=== PATIENT | female | born 1995 | race Caucasian/White ===

== ENCOUNTER 2016-11-16 09:07 | Emergency (ER) | payer BC ==
[2016-11-16 09:19] VITALS: BP 146/81
--- NOTE | 2016-11-16 09:32 | EDM.PDOC ---
ED HPI NEURO - General Chief Complaint: Neurological Problem Stated Complaint: FALLING Time Seen by Provider: 11/16/16 09:31 Source of Information: Reports: Patient History Limitations: Reports: No limitations - History of Present Illness INITIAL COMMENTS - FREE TEXT/NARRATIVE: The patient has never seen a neurologist. She does have an appointment with a neurologist in April. She does have a history of "tics". However she states that she has never had a EEG. The patient states that about two weeks ago she ended up hitting a curb with her head and ended up with a CAT scan as well as a brace. She was seen by Dr. Vanegas at that time. The patient had good results recovering well from that. However last night she fell to the floor on three different occasions at work. She works at a [place] [employer] [facility] those with traumatic brain injury. The patient states that she does remember falling and that she did have a "tic". And her language sounded garbled. The patient could not tell me whether or not the bystanders with traumatic brain injury could understand her when she was talking to them while she fell or on the floor. The patient does have a complicated medical history with bipolar. She has been considering increasing her Risperdal to prevent future tics. She recently had her valproic acid increased but that was without any sequela. The patient has not taken a Depakote since 11:00 this morning. I did run the lab work. The patient was accompanied by her mother. I did talk to the neurologist online communications manager at [place] Dr. Parsons After talking to her she agreed that the patient did not need to have an emergent EEG done or MRI. The patient' s CAT scan was deemed negative. The neurologist did recommend a Depakote level and a ammonia level. The patient admits to having somewhat of a cold. I did find that the patient did have a urinary tract infection even though that she did not have any symptoms. This may be exasperation of her tics secondary to UTI and possibly a viral entity. At any rate I did recommend that she not drive while she is unsure about her mental status and whether or not she is going to have any future falls. She states that she normally has about one or two tics a week and her typical tick will be that she will roll her head and rolled back. The neurologist also said that she would assist in moving up the appointment with the patient. The patient is scheduled to see Dr. Griffin in April. The patient and her mother both felt comfortable with this. I did give the patient the rest of tonight off and she can return to work tomorrow if she has not had any future falls. If she does have another fall tomorrow despite her best efforts of being hydrated and being on antibiotic therapy for her UTI then she should contact Dr. Griffin and move up her appointment. I did review her medical chart. Timing/Duration: Reports: Sudden onset Location (Neuro Complaint): Reports: generalized Quality (Neuro Complaint): Reports: altered sensation Severity: severe Improves with: Reports: None Worsens with: Reports: None Associated Symptoms: Reports: weakness, malaise, loss of appetite. Denies: seizure, shortness of breath - Related Data Allergies/ADRs: Allergies Allergy/AdvReac Type Severity Reaction Status Date / Time No Known Allergies Allergy Verified 10/17/15 22:41 Home Meds: Home Meds Loratadine [Claritin] 10 mg PO DAILY PRN 10/17/15 [History] medroxyPROGESTERone Acetate [Depo-Subq Provera 104] 104 mg SQ ASDIRECTED [History] Amoxicillin/Clavulanate K [Augmentin 875 MG] 1 tab PO BID #20 tablet 10/18/15 [ Rx] Past Medical History Neurological History: Reports: Migraines, Other (see below) (Tic disorder) Psychiatric History: Reports: Depression Hematologic History: Reports: Anemia - Past Surgical History HEENT Surgical History: Reports: Myringotomy w tube(s) GI Surgical History: Reports: Cholecystectomy Social & Family History - Tobacco Use Smoking Status *Q: Current Every Day Smoker Years of Tobacco use: 4 Packs/Tins Daily: 1 - Alcohol Use Days Per Week of Alcohol Use: 0 - Recreational Drug Use Recreational Drug Use: No ED ROS GENERAL - Review of Systems Review Of Systems: See Below Constitutional: Reports: weakness, fatigue HEENT: Denies: Vision change Respiratory: Reports: no symptoms, shortness of breath Cardiovascular: Reports: No symptoms, Chest pain Endocrine: Reports: fatigue GI/Abdominal: Reports: No symptoms : Reports: no symptoms Musculoskeletal: Denies: neck pain, arm pain, back pain, joint pain, joint swelling, muscle pain, muscle stiffness Skin: Reports: no symptoms Neurological: Reports: syncope (or possibly nearly. ), gait disturbance Psychiatric: Reports: Depression Hematologic/Lymphatic: Reports: no symptoms Immunologic: Reports: no symptoms ED EXAM, NEURO - Physical Exam Exam: See Below Exam Limited By: Other (Obesity noted) General Appearance: alert, anxious, moderate distress, obese Eye Exam: bilateral eye: EOMI Ears: normal external exam, normal canal, hearing grossly normal, normal TMs Nose: normal inspection Throat/Mouth: Normal inspection, Normal lips, Normal teeth, Normal gums, Normal oropharynx, Normal voice, No airway compromise Head Exam: atraumatic, normocephalic. No: facial swelling, facial tenderness, sinus tenderness Neck: normal inspection, supple, non-tender, full range of motion. No: lymphadenopathy (L), lymphadenopathy (R), tender lateral, tender midline Respiratory/Chest: no respiratory distress, lungs clear Cardiovascular: regular rate, rhythm, no murmur GI/Abdominal: normal bowel sounds, soft, non tender Neurological: alert, normal dorsiflexion, normal plantar flexion, normal gait, normal reflexes, no motor/sensory deficits, other (Rhomberg is negative. ). No : difficulty walking DTR: 2+: bicep (R), bicep (L), patella (R), patella (L) Back Exam: normal inspection, full range of motion Extremities: normal inspection, normal range of motion Psychiatric: anxious Skin Exam: Warm, Dry Course - Vital Signs Last Recorded V/S: Last Vital Signs Temp 36.8 C 11/16/16 09:18 Pulse 99 11/16/16 09:18 Resp 20 11/16/16 09:18 BP 146/81 H 11/16/16 09:18 Pulse Ox 99 11/16/16 09:18 - Orders/Labs/Meds Labs: Laboratory Tests 11/16/16 11/16/16 11/16/16 Range/Units 09:54 09:54 10:32 WBC 12.0 H (4.0-10.0) x10^3/uL RBC 5.16 (4.00-5.50) x10^6/uL Hgb 11.4 L (12.0-16.0) g/dL Hct 36.8 (33.0-47.0) % MCV 71.3 L (78.0-93.0) fL MCH 22.1 L (26.0-32.0) pg MCHC 31.0 L (32.0-36.0) g/dL RDW Coeff of Paulo 16.8 H (10.0-15.0) % Plt Count 400 (130-400) x10^3/uL Neut % (Auto) 67.3 (50.0-80.0) % Lymph % (Auto) 24.5 L (25.0-50.0) % P[place]leton % (Auto) 6.2 (2.0-11.0) % Eos % (Auto) 1.8 (0.0-4.0) % Baso % (Auto) 0.2 (0.2-1.2) % Sodium 139 (136-145) mmol/L Potassium 4.1 (3.5-5.1) mmol/L Chloride 101 (98-107) mmol/L Carbon Dioxide 28 (21-32) mmol/L BUN 11 (7-18) mg/dL Creatinine 0.8 (0.55-1.02) mg/dL Est Cr Clr Drug Dosing TNP Estimated GFR (MDRD) > 60 Glucose 91 (74-106) mg/dL Calcium 8.5 (8.5-10.1) mg/dL Corrected Calcium 8.98 (8.5-10.1) mg/dL Magnesium 2.0 (1.8-2.4) mg/dL Total Bilirubin 0.2 (0.2-1.0) mg/dL AST 9 L (15-37) U/L ALT 21 (14-59) U/L Alkaline Phosphatase 89 (46-116) U/L C-Reactive Protein 2.6 H (<=0.9) mg/dL Total Protein 7.3 (6.4-8.2) g/dL Albumin 3.4 (3.4-5.0) g/dL Globulin 3.9 Albumin/Globulin Ratio 0.87 Urine Color Delmy H (YELLOW) Urine Appearance Turbid H (CLEAR) Urine pH 5.5 (5.0-8.0) Ur Specific Warren >=1.030 Urine Protein Negative (NEGATIVE) mg/dL Urine Glucose (UA) Negative (NEGATIVE) mg/dL Urine Ketones Negative (NEGATIVE) mg/dL Urine Occult Blood Negative (NEGATIVE) Urine Nitrite Negative (NEGATIVE) Urine Bilirubin Negative (NEGATIVE) Urine Urobilinogen 0.2 (0.2) EU/dL Ur Leukocyte Esterase Small H (NEGATIVE) Urine RBC 0-5 (NOT SEEN) /HPF Urine WBC 30-40 H (NOT SEEN) /HPF Ur Squamous Epith Cells Many H (NEGATIVE) /HPF Urine Bacteria Moderate H (NEGATIVE) /HPF Urine Mucus Moderate H (NEGATIVE) /LPF Meds: Medications Discontinued Medications Generic Name Dose Route Start Last Admin Trade Name Freq PRN Reason Stop Dose Admin Trimethoprim/Sulfamethoxazole 1 tab 11/16/16 11:39 11/16/16 12:04 Septra Ds PO 11/16/16 11:40 1 tab ONETIME ONE Administration Departure - Departure Time of Disposition: 11:32 Disposition: Home, Self-Care 01 Condition: good Clinical Impression: Urinary tract infection Qualifiers: Urinary tract infection type: acute cystitis Hematuria presence: without hematuria Qualified Code(s): N30.00 - Acute cystitis without hematuria Change in mental status Qualifiers: Altered mental status type: unspecified Qualified Code(s): R41.82 - Altered mental status, unspecified Referrals: Darrin Franklin MD [Primary Care Provider] - Forms: ED Department Discharge Additional Instructions: Call Dr. Griffin office and ask to have your appointment moved up. Notify them you had been to the ER and you did have an increase or change in your TICS. I talked to Dr. Parsons and she did not feel this was emergent. I do want to treat you for a urinary infection. Your CT scan was normal. I will also be checking a Depakote level and also a ammonia level. These are pending. We will notify you if these are abnormal. I would recommend taking tonight off of work and drink plenty of fluids keeping herself hydrated get plenty of rest and if you feel well he can go and return to work tomorrow night. make sure you keep good documentation of any tics. This will be useful when you see Dr. Griffin.
[2016-11-16 09:57] LABS: BASOPHILS PERCENT AUTO 0.2 % (0.2-1.2); EOSINOPHILS PERCENT AUTO 1.8 % (0.0-4.0); HEMATOCRIT 36.8 % (33.0-47.0); HEMOGLOBIN 11.4 g/dL (12.0-16.0); LYMPHOCYTES PERCENT AUTO 24.5 % (25.0-50.0); MEAN CORPUSCULAR HEMOGLOBIN 22.1 pg (26.0-32.0); MEAN CORPUSCULAR VOLUME 71.3 fL (78.0-93.0); MONOCYTES PERCENT AUTO 6.2 % (2.0-11.0); NEUTROPHILS PERCENT AUTO 67.3 % (50.0-80.0); RED BLOOD CELL COUNT 5.16 x10^6/uL (4.00-5.50)
[2016-11-16 10:09] LABS: RDW CV 16.8 % (10.0-15.0)
[2016-11-16 10:26] LABS: A/G RATIO 0.87; ALBUMIN 3.4 g/dL (3.4-5.0); ALKALINE PHOSPHATASE 89 U/L (46-116); BILIRUBIN TOTAL 0.2 mg/dL (0.2-1.0); C-REACTIVE PROTEIN 2.6 mg/dL (<=0.9); CALCIUM 8.5 mg/dL (8.5-10.1); CHLORIDE,CL 101 mmol/L (98-107); CORRECTED CALCIUM 8.98 mg/dL (8.5-10.1); CREATININE 0.8 mg/dL (0.55-1.02); ESTIMATED GFR > 60; GLUCOSE RANDOM 91 mg/dL (74-106)
[2016-11-16 10:44] LABS: APPEARANCE,URINE TURBID (CLEAR); BILIRUBIN,URINE NEGATIVE (NEGATIVE); GLUCOSE,URINE NEGATIVE (NEGATIVE); KETONES,URINE NEGATIVE (NEGATIVE); LEUKOCYTE ESTERASE,URINE SMALL (NEGATIVE); NITRITE,URINE NEGATIVE (NEGATIVE); OCCULT BLOOD,URINE NEGATIVE (NEGATIVE); PH,URINE 5.5 (5.0-8.0); PROTEIN,URINE NEGATIVE (NEGATIVE); UROBILINOGEN,URINE 0.2 EU/dL (0.2)
[2016-11-16 11:14] LABS: BACTERIA,URINE MODERATE /HPF (NEGATIVE); MUCUS,URINE MODERATE /LPF (NEGATIVE); RBC,URINE 0-5 /HPF (NOT SEEN); WBC,URINE 30-40 /HPF (NOT SEEN)
[2016-11-16] MEDS ORDERED: Sulfamethoxazole/Trimethoprim 800-160 MG Tab PO ONE (11:39)
[2016-11-18 07:32] LABS: CLARITY Clear
== END 2016-11-16 12:11 | disposition home or self-care (01) ==
LOC: VM.ED 09:07
DX: N30.00 Acute cystitis without hematuria (principal); R41.82 Altered mental status, unspecified; F32.9 Major depressive disorder, single episode, unspecified; F17.210 Nicotine dependence, cigarettes, uncomplicated; Z86.2 Personal history of diseases of the blood and blood-forming organs and certain disorders involving the immune mechanism; Z90.49 Acquired absence of other specified parts of digestive tract; Z79.899 Other long term (current) drug therapy
CPT/HCPCS: 36415; 70450; 80053; 80164; 81001; 82140; 83735; 85025; 86140; 87086; 87088; 93005; 99284; A9270; 87186

== ENCOUNTER 2017-04-02 04:00 | Emergency (ER) | payer BC ==
[2017-04-02 04:15] VITALS: BP 119/50
[2017-04-02] MEDS ORDERED: Sodium Chloride 0.9% 1,000 ML IV ONE (04:37)
[2017-04-02] MEDS ORDERED: Ondansetron 4 MG/2 ML SDV IVPUSH ONE (04:37)
[2017-04-02] MEDS ORDERED: Sodium Chloride 0.9% 10 ML Syringe FLUSH PRN (04:37)
--- NOTE | 2017-04-02 04:43 | EDM.PDOC ---
ED HPI GENERAL MEDICAL PROBLEM - General Chief Complaint: General Stated Complaint: Rash, Impetigo, Dizziness, Headache Time Seen by Provider: 04/02/17 04:24 Source of Information: Reports: Patient History Limitations: Reports: No Limitations - History of Present Illness INITIAL COMMENTS - FREE TEXT/NARRATIVE: Patient seen in the clinic on Thursday, diagnosed with Impetigo and given bactrim for systemic infection. She presents this morning with a full body rash , headache, nausea, joint weakness. She did take tylenol pm before bed last night. She has taken bactrim in the past with no reaction. Her boyfriend has been diagnosed with mono 3 weeks ago and strep throat before that. She also states she has had diarrhea. Denies chest pain, SOB, decrease in LOC. No blood in urine, stool, no emesis. Surgical history includes cholecystectomy. 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 Pain Score (Numeric/FACES): 9 joints Pain Score (Numeric/FACES): 5 - Related Data Allergies Allergy/AdvReac Type Severity Reaction Status Date / Time No Known Allergies Allergy Verified 04/02/17 04:15 Home Meds: Home Meds Loratadine [Claritin] 10 mg PO DAILY PRN 10/17/15 [History] medroxyPROGESTERone Acetate [Depo-Subq Provera 104] 104 mg SQ ASDIRECTED [History] Sulfamethoxazole/Trimethoprim [Bactrim Ds Tablet] 1 tab PO BID 04/02/17 [History ] Past Medical History Neurological History: Reports: Migraines, Other (See Below) Other Neuro History: fall Nov 06 Psychiatric History: Reports: Depression Hematologic History: Reports: Anemia - Past Surgical History HEENT Surgical History: Reports: Myringotomy w Tube(s) GI Surgical History: Reports: Cholecystectomy Social & Family History - Tobacco Use Smoking Status *Q: Current Every Day Smoker Years of Tobacco use: 4 Packs/Tins Daily: 1 - Alcohol Use Days Per Week of Alcohol Use: 0 - Recreational Drug Use Recreational Drug Use: No ED ROS GENERAL - Review of Systems Review Of Systems: See Below Constitutional: Reports: Weakness HEENT: Reports: No Symptoms Respiratory: Reports: No Symptoms Cardiovascular: Reports: No Symptoms Endocrine: Reports: No Symptoms GI/Abdominal: Reports: Abdominal Pain, Diarrhea, Nausea Musculoskeletal: Reports: Joint Pain Skin: Reports: Rash Neurological: Reports: Headache Psychiatric: Reports: No Symptoms Hematologic/Lymphatic: Reports: No Symptoms Immunologic: Reports: No Symptoms ED EXAM, GENERAL - Physical Exam Exam: See Below Exam Limited By: No Limitations General Appearance: Alert, WD/WN, No Apparent Distress Eye Exam: Bilateral Eye: EOMI, PERRL Ears: Normal TMs Throat/Mouth: Normal Inspection, Normal Lips, Normal Teeth, Normal Oropharynx Head: Atraumatic, Normocephalic Neck: Normal Inspection, Supple, Non-Tender, Full Range of Motion Respiratory/Chest: No Respiratory Distress, Lungs Clear, Normal Breath Sounds, No Accessory Muscle Use, Chest Non-Tender Cardiovascular: Normal Peripheral Pulses, Regular Rate, Rhythm, No Edema Peripheral Pulses: 2+: Posterior Tibial (L), Posterior Tibial (R), Dorsalis Pedis (L), Dorsalis Pedis (R) GI/Abdominal: Normal Bowel Sounds, Soft, Non-Tender, No Organomegaly Back Exam: Normal Inspection Extremities: Normal Inspection, Normal Range of Motion, Non-Tender, No Pedal Edema, Normal Capillary Refill Neurological: Alert, Oriented, CN II-XII Intact, Normal Cognition, Normal Gait Psychiatric: Normal Affect, Normal Mood Skin Exam: Rash (macular generalized rash) Lymphatic: No Adenopathy Course - Vital Signs Last Recorded V/S: Last Vital Signs Temp 37.8 C 04/02/17 04:00 Pulse 84 04/02/17 04:00 Resp 16 04/02/17 04:00 BP 119/50 L 04/02/17 04:00 Pulse Ox 97 04/02/17 04:00 - Re-Assessments/Exams Free Text/Narrative Re-Assessment/Exam: 04/02/17 04:47 Patient is being hydrated, screened for mono, given zofran for nausea. Departure - Departure Time of Disposition: 05:41 Disposition: Home, Self-Care 01 Condition: good Clinical Impression: Allergic drug rash, Viral infection, Lucas exposure - Discharge Information Instructions: Rehydration, Adult, Mononucleosis Rapid Test, Infectious Mononucleosis Forms: ED Department Discharge Additional Instructions: Stop taking the bactrim. This may be the cause of your rash. I have started you on Keflex instead. Your rash may also be the result of a viral infection. They can be very similar in appearance. I have also tested you for MONO and we will let you know the results You have many viral illness complaints with the joint pain/weakness, headache, nausea, low grade temperature Your rapid mono screen was negative, however, an monik longoria viral panel is pending and we will let you know of any positive results with that Please read the instructions that I gave you on viral illness, rapid mono testing, and infectious mononucleosis Follow up with your primary doctor as symptoms warrant Please call with any questions or concerns - Problem List & Annotations (1) Allergic drug rash SNOMED Code(s): 25075514, 876934589 Code(s): L27.0 - GEN SKIN ERUPTION DUE TO DRUGS AND MEDS TAKEN INTERNALLY Status: Acute Priority: Low Current Visit: Yes (2) Lucas exposure SNOMED Code(s): 727730295 Code(s): Z20.828 - CONTACT W AND EXPOSURE TO OTH VIRAL COMMUNICABLE DISEASES Status: Acute Priority: Low Current Visit: Yes (3) Viral infection SNOMED Code(s): 78656732, 013380630 Code(s): B34.9 - VIRAL INFECTION, UNSPECIFIED Status: Acute Priority: Low Current Visit: Yes - Problem List Review Problem List Initiated/Reviewed/Updated: Yes - Assessment/Plan Assessment:: exposure to mono viral rash Plan: Stop taking the bactrim. This may be the cause of your rash. I have started you on Keflex instead. Your rash may also be the result of a viral infection. They can be very similar in appearance. I have also tested you for MONO and we will let you know the results You have many viral illness complaints with the joint pain/weakness, headache, nausea, low grade temperature Your rapid mono screen was negative, however, an monik longoria viral panel is pending and we will let you know of any positive results with that Please read the instructions that I gave you on viral illness, rapid mono testing, and infectious mononucleosis Follow up with your primary doctor as symptoms warrant Please call with any questions or concerns
== END 2017-04-02 05:43 | disposition home or self-care (01) ==
LOC: VM.ED 04:00
DX: B34.9 Viral infection, unspecified (principal); R21 Rash and other nonspecific skin eruption; B27.90 Infectious mononucleosis, unspecified without complication; F32.9 Major depressive disorder, single episode, unspecified; G43.909 Migraine, unspecified, not intractable, without status migrainosus; F17.210 Nicotine dependence, cigarettes, uncomplicated; Z90.49 Acquired absence of other specified parts of digestive tract; Z79.899 Other long term (current) drug therapy; Z86.2 Personal history of diseases of the blood and blood-forming organs and certain disorders involving the immune mechanism; Z96.22 Myringotomy tube(s) status
CPT/HCPCS: 36415; 86308; 86663; 86664; 86665; 96361; 96374; 99284; J2405; J7030

== ENCOUNTER 2017-08-28 21:29 | Emergency (ER) | payer BC ==
[2017-08-28] MEDS ORDERED: Sodium Chloride 0.9% 10 ML Syringe FLUSH PRN (21:55)
[2017-08-28] MEDS ORDERED: Sodium Chloride 0.9% 1,000 ML IV SCH (22:00)
--- NOTE | 2017-08-28 22:49 | EDM.PDOC ---
ED HPI GENERAL MEDICAL PROBLEM - General Chief Complaint: Respiratory Problem Stated Complaint: HEART POUNDING AND TIGHTNESS IN CHEST Time Seen by Provider: 08/28/17 21:39 Source of Information: Reports: Patient History Limitations: Reports: No Limitations - History of Present Illness INITIAL COMMENTS - FREE TEXT/NARRATIVE: Patient states that she most recently had been traveling down to the [facility] of the [facility] was in a car for approximately 5 days and was about on the last day of her trip that she started having swollen and bilateral lower extremities. Approximately the last 3 or 4 days she's noticed some increased chest discomfort on exertion and breathing. Today when she woke up she started having more than of the chest discomfort sitting in midsternal area however it is exacerbated by movement and coughing and deep breathing. Does relieve if she is resting. Onset: Today, Gradual Location: Reports: Chest Quality: Reports: Ache, Dull Severity: Mild Improves with: Reports: Immobilization Worsens with: Reports: Movement Associated Symptoms: Reports: Shortness of Breath, Other (swelling ). Denies: Confusion, Chest Pain, Cough, Diaphoresis, Fever/Chills, Headaches, Nausea/ Vomiting, Seizure, Weakness - Related Data Allergies Allergy/AdvReac Type Severity Reaction Status Date / Time No Known Allergies Allergy Verified 04/02/17 04:15 Home Meds: Home Meds Loratadine [Claritin] 10 mg PO DAILY PRN 10/17/15 [History] medroxyPROGESTERone Acetate [Depo-Subq Provera 104] 104 mg SQ ASDIRECTED [History] Sulfamethoxazole/Trimethoprim [Bactrim Ds Tablet] 1 tab PO BID 04/02/17 [History ] Prednisone [IJD: Prednisone] 10 mg PO BID 5 Days #10 tab 08/28/17 [Rx] Past Medical History Neurological History: Reports: Migraines, Other (See Below) Other Neuro History: fall Nov 06 Psychiatric History: Reports: Depression Hematologic History: Reports: Anemia - Past Surgical History HEENT Surgical History: Reports: Myringotomy w Tube(s) GI Surgical History: Reports: Cholecystectomy Social & Family History - Tobacco Use Smoking Status *Q: Current Every Day Smoker Years of Tobacco use: 4 Packs/Tins Daily: 1 - Alcohol Use Days Per Week of Alcohol Use: 0 - Recreational Drug Use Recreational Drug Use: No ED ROS GENERAL - Review of Systems Review Of Systems: See Below Constitutional: Reports: No Symptoms HEENT: Reports: No Symptoms Respiratory: Reports: Shortness of Breath, Pleuritic Chest Pain Cardiovascular: Reports: Edema, Palpitations Endocrine: Reports: No Symptoms GI/Abdominal: Reports: No Symptoms : Reports: No Symptoms Musculoskeletal: Reports: No Symptoms Skin: Reports: No Symptoms Neurological: Reports: No Symptoms Psychiatric: Reports: No Symptoms ED EXAM, GENERAL - Physical Exam Exam: See Below Exam Limited By: No Limitations General Appearance: Alert, WD/WN, No Apparent Distress Respiratory/Chest: No Respiratory Distress, Lungs Clear, Normal Breath Sounds, No Accessory Muscle Use Cardiovascular: Normal Peripheral Pulses, Regular Rate, Rhythm GI/Abdominal: Normal Bowel Sounds, Soft, Non-Tender, No Organomegaly Back Exam: Normal Inspection, Full Range of Motion Extremities: Normal Inspection, Normal Range of Motion Neurological: Alert, Oriented, CN II-XII Intact, Normal Cognition, Normal Gait Skin Exam: Warm, Dry, Intact, Normal Color, No Rash Course - Orders/Labs/Meds Orders: Active Orders 24 hr Category Date Time Status EKG Documentation Completion [RC] URGENT Care 08/28/17 21:52 Ordered Ang Chest [CT] Stat Exams 08/28/17 21:52 Taken Sodium Chloride 0.9% [Normal Saline] 1,000 ml Med 08/28/17 22:00 Active IV ASDIRECTED Sodium Chloride 0.9% [Saline Flush] Med 08/28/17 21:55 Active 10 ml FLUSH ASDIRECTED PRN Peripheral IV Insertion Adult [OM.PC] Routine Oth 08/28/17 21:55 Ordered Medication Orders Sodium Chloride (Normal Saline) 1,000 mls @ 500 mls/hr IV ASDIRECTED MARCELLUS Sodium Chloride (Saline Flush) 10 ml FLUSH ASDIRECTED PRN PRN Reason: Keep Vein Open Labs: Laboratory Tests 08/28/17 08/28/17 08/28/17 Range/Units 22:22 22:22 22:22 WBC 9.1 (4.0-10.0) x10^3/uL RBC 4.70 (4.00-5.50) x10^6/uL Hgb 10.6 L (12.0-16.0) g/dL Hct 34.6 (33.0-47.0) % MCV 73.6 L (78.0-93.0) fL MCH 22.6 L (26.0-32.0) pg MCHC 30.6 L (32.0-36.0) g/dL RDW Coeff of Paulo 16.8 H (10.0-15.0) % Plt Count 360 (130-400) x10^3/uL Add Manual Diff Yes Neutrophils % (Manual) 61 (50-80) % Band Neutrophils % 2 (0-6) % Lymphocytes % (Manual) 31 (25-50) % Monocytes % (Manual) 5 (2-11) % Blast Cells % 1 H (0) % Platelet Estimate Adequate Giant Platelets Occasional H Anisocytosis 1+ slight H Microcytosis 3+ marked H PT 9.3 L (9.8-11.8) SEC INR 0.9 L (2.0-3.5) D-Dimer, Quantitative 0.24 (<=0.58) mg/LFEU Sodium 144 (136-145) mmol/L Potassium 4.2 (3.5-5.1) mmol/L Chloride 109 H (98-107) mmol/L Carbon Dioxide 27 (21-32) mmol/L BUN 9 (7-18) mg/dL Creatinine 0.8 (0.55-1.02) mg/dL Est Cr Clr Drug Dosing TNP Estimated GFR (MDRD) > 60 Glucose 91 (74-106) mg/dL Calcium 8.8 (8.5-10.1) mg/dL Corrected Calcium 9.44 (8.5-10.1) mg/dL Total Bilirubin 0.2 (0.2-1.0) mg/dL AST 20 (15-37) U/L ALT 44 (14-59) U/L Alkaline Phosphatase 92 (46-116) U/L Creatine Kinase 34 (26-192) U/L Total Protein 6.4 (6.4-8.2) g/dL Albumin 3.2 L (3.4-5.0) g/dL Globulin 3.2 Albumin/Globulin Ratio 1.00 Meds: Medications Generic Name Dose Route Start Last Admin Trade Name Freq PRN Reason Stop Dose Admin Sodium Chloride 1,000 mls @ 500 mls/hr 08/28/17 22:00 Normal Saline IV ASDIRECTED MARCELLUS Sodium Chloride 10 ml 08/28/17 21:55 Saline Flush FLUSH ASDIRECTED PRN Keep Vein Open Departure - Departure Time of Disposition: 23:15 Disposition: Home, Self-Care 01 Clinical Impression: Atelectasis, Splenomegaly - Discharge Information Instructions: Shortness of Breath, [id number] Referrals: Darrin Franklin MD [Primary Care Provider] - Forms: ED Department Discharge Additional Instructions: Follow-up with primary PCP early next week regarding the enlarged spleen. - My Orders Last 24 Hours: My Active Orders 08/28/17 21:52 EKG Documentation Completion [RC] URGENT Ang Chest [CT] Stat 08/28/17 21:55 Sodium Chloride 0.9% [Saline Flush] 10 ml FLUSH ASDIRECTED PRN Peripheral IV Insertion Adult [OM.PC] Routine 08/28/17 22:00 Sodium Chloride 0.9% [Normal Saline] 1,000 ml IV ASDIRECTED - Assessment/Plan Last 24 Hours: My Active Orders 08/28/17 21:52 EKG Documentation Completion [RC] URGENT Ang Chest [CT] Stat 08/28/17 21:55 Sodium Chloride 0.9% [Saline Flush] 10 ml FLUSH ASDIRECTED PRN Peripheral IV Insertion Adult [OM.PC] Routine 08/28/17 22:00 Sodium Chloride 0.9% [Normal Saline] 1,000 ml IV ASDIRECTED
[2017-08-28 22:53] LABS: CHLORIDE,CL 109 mmol/L (98-107); SODIUM,NA 144 mmol/L (136-145)
[2017-08-29 04:48] VITALS: BP 144/81
== END 2017-08-28 23:30 | disposition home or self-care (01) ==
LOC: VM.ED 21:29
DX: J98.11 Atelectasis (principal); R16.1 Splenomegaly, not elsewhere classified; F17.210 Nicotine dependence, cigarettes, uncomplicated; Z79.899 Other long term (current) drug therapy
CPT/HCPCS: 71275; 80053; 82550; 85025; 85379; 85610; 99285

== ENCOUNTER 2023-11-12 00:05 | Emergency (ER) | payer SELFPAY ==
[2023-11-12 00:28] VITALS: BP 140/83; PULSE 97
[2023-11-12 00:54] LABS: APPEARANCE,URINE CLEAR (CLEAR); BILIRUBIN,URINE NEGATIVE (NEGATIVE); COLOR,URINE YELLOW (YELLOW); GLUCOSE,URINE NEGATIVE (NEGATIVE); KETONES,URINE NEGATIVE (NEGATIVE); LEUKOCYTE ESTERASE,URINE NEGATIVE (NEGATIVE); NITRITE,URINE NEGATIVE (NEGATIVE); OCCULT BLOOD,URINE NEGATIVE (NEGATIVE); UROBILINOGEN,URINE 0.2 EU/dL (0.2)
[2023-11-12 00:55] LABS: PROTEIN,URINE TRACE mg/dL (NEGATIVE)
[2023-11-12] MEDS: Ondansetron 4 MG Tab.DIS PO ONE (00:55)
[2023-11-12 00:59] LABS: RBC,URINE 0-5 /HPF (NOT SEEN); WBC,URINE NOT SEEN /HPF (NOT SEEN)
[2023-11-12 01:00] LABS: BACTERIA,URINE NOT SEEN /HPF (NOT SEEN); MUCUS,URINE NOT SEEN /LPF (NOT SEEN); SQUAMOUS EPITHELIAL CELLS,UR FEW /HPF (NOT SEEN)
== END 2023-11-12 01:02 | disposition home or self-care (01) ==
LOC: VM.ED 00:05
DX: R10.84 Generalized abdominal pain (principal); Z90.49 Acquired absence of other specified parts of digestive tract; Z79.899 Other long term (current) drug therapy
CPT/HCPCS: 81001; 99284; A9270-GY

== ENCOUNTER 2024-05-28 04:50 | Emergency (ER) | payer SELFPAY ==
[2024-05-28] MEDS: hydrOXYzine HCl 25 MG Tab PO ONE (05:24)
[2024-05-28 15:01] VITALS: BP 136/88; PULSE 88
== END 2024-05-28 05:30 | disposition home or self-care (01) ==
LOC: VM.ED 04:50
DX: F41.1 Generalized anxiety disorder (principal); Z88.0 Allergy status to penicillin; Z88.2 Allergy status to sulfonamides; Z88.8 Allergy status to other drugs, medicaments and biological substances; Z79.890 Hormone replacement therapy; Z79.899 Other long term (current) drug therapy; Z90.49 Acquired absence of other specified parts of digestive tract
CPT/HCPCS: 99283; A9270-GY

== ENCOUNTER 2024-07-31 08:19 | Emergency (ER) | payer SELFPAY ==
[2024-07-31] MEDS: Take Home: Cyclobenzaprine 10 MG Tab, 4 Tab Pack PO ONE (08:51)
[2024-07-31 09:45] VITALS: BP 140/82; PULSE 89
== END 2024-07-31 09:00 | disposition home or self-care (01) ==
LOC: VM.ED 08:19
DX: M54.50 Low back pain, unspecified (principal); Z90.49 Acquired absence of other specified parts of digestive tract; Z79.899 Other long term (current) drug therapy; Z88.1 Allergy status to other antibiotic agents; Z88.8 Allergy status to other drugs, medicaments and biological substances; Z88.2 Allergy status to sulfonamides
CPT/HCPCS: 99283; A9270-GY

== ENCOUNTER 2024-10-24 16:32 | Emergency (ER) | payer SELFPAY ==
[2024-10-24 16:55] VITALS: PULSE 86
[2024-10-24 17:22] LABS: BASOPHILS PERCENT AUTO 0.1 % (0.2-1.2); EOSINOPHILS ABSOLUTE AUTO 0.2 x10^3/uL (0.0-0.5); EOSINOPHILS PERCENT AUTO 1.8 % (0.0-4.0); HEMATOCRIT 35.2 % (33.0-47.0); HEMOGLOBIN 11.3 g/dL (12.0-16.0); IMMATURE GRAN ABSOLUTE AUTO 0.04 x10^3/uL (0.00-0.07); LYMPHOCYTES ABSOLUTE AUTO 2.3 x10^3/uL (1.0-4.8); LYMPHOCYTES PERCENT AUTO 16.9 % (25.0-50.0); MEAN CORPUSCULAR HEMOGLOBIN 23.7 pg (26.0-32.0); MEAN CORPUSCULAR HGB CONC 32.1 g/dL (32.0-36.0); MEAN CORPUSCULAR VOLUME 73.9 fL (78.0-93.0); MONOCYTES ABSOLUTE AUTO 0.6 x10^3/uL (0.0-0.8); MONOCYTES PERCENT AUTO 4.5 % (2.0-11.0); NEUTROPHILS ABSOLUTE AUTO 10.2 x10^3/uL (1.8-7.7); NEUTROPHILS PERCENT AUTO 76.4 % (50.0-80.0); PLATELET COUNT,PLT 424 x10^3/uL (130-400); RED BLOOD CELL COUNT 4.76 x10^6/uL (4.00-5.50); WHITE BLOOD CELL COUNT,WBC 13.4 x10^3/uL (4.0-10.0)
[2024-10-24 17:38] LABS: APPEARANCE,URINE CLEAR (CLEAR); BILIRUBIN,URINE NEGATIVE (NEGATIVE); COLOR,URINE LIGHT YELLOW (YELLOW); GLUCOSE,URINE NEGATIVE (NEGATIVE); KETONES,URINE NEGATIVE (NEGATIVE); LEUKOCYTE ESTERASE,URINE NEGATIVE (NEGATIVE); NITRITE,URINE NEGATIVE (NEGATIVE); OCCULT BLOOD,URINE NEGATIVE (NEGATIVE); PROTEIN,URINE NEGATIVE (NEGATIVE); UROBILINOGEN,URINE 0.2 EU/dL (0.2)
[2024-10-24 17:44] LABS: ALBUMIN 3.3 g/dL (3.4-5.0); BILIRUBIN TOTAL 0.2 mg/dL (0.2-1.0); C-REACTIVE PROTEIN 1.47 mg/dL (<=0.50); CALCIUM 9.4 mg/dL (8.5-10.1); CREATININE 0.7 mg/dL (0.55-1.02); EST CRCL DRUG DOSING (CG) 107.67 mL/min; PROTEIN TOTAL,TP 6.6 g/dL (6.4-8.2)
[2024-10-24] MEDS: Ondansetron 4 MG/2 ML SDV IVPUSH ONE (17:55)
[2024-10-24 18:27] VITALS: BP 150/80
== END 2024-10-24 18:24 | disposition home or self-care (01) ==
LOC: VM.ED 16:32
DX: K52.9 Noninfective gastroenteritis and colitis, unspecified (principal); Z79.899 Other long term (current) drug therapy; Z88.2 Allergy status to sulfonamides; Z88.0 Allergy status to penicillin; Z88.8 Allergy status to other drugs, medicaments and biological substances
CPT/HCPCS: 80053; 81003; 81025; 83690; 85025; 86140; 96374; 99284; 99284-25; J2405

== ENCOUNTER 2025-02-08 22:18 | Emergency (ER) | payer SELFPAY ==
[2025-02-08 22:46] VITALS: BP 131/71; PULSE 81
[2025-02-08 22:46] LABS: BASOPHILS PERCENT AUTO 0.2 % (0.2-1.2); EOSINOPHILS ABSOLUTE AUTO 0.3 x10^3/uL (0.0-0.5); HEMOGLOBIN 10.8 g/dL (12.0-16.0); IMMATURE GRAN ABSOLUTE AUTO 0.01 x10^3/uL (0.00-0.07); LYMPHOCYTES ABSOLUTE AUTO 3.2 x10^3/uL (1.0-4.8); LYMPHOCYTES PERCENT AUTO 25.7 % (25.0-50.0); MEAN CORPUSCULAR HEMOGLOBIN 23.4 pg (26.0-32.0); MEAN CORPUSCULAR HGB CONC 31.8 g/dL (32.0-36.0); MEAN CORPUSCULAR VOLUME 73.8 fL (78.0-93.0); MONOCYTES ABSOLUTE AUTO 0.5 x10^3/uL (0.0-0.8); MONOCYTES PERCENT AUTO 4.1 % (2.0-11.0); NEUTROPHILS ABSOLUTE AUTO 8.4 x10^3/uL (1.8-7.7); NEUTROPHILS PERCENT AUTO 67.9 % (50.0-80.0); PLATELET COUNT,PLT 438 x10^3/uL (130-400); RED BLOOD CELL COUNT 4.61 x10^6/uL (4.00-5.50); WHITE BLOOD CELL COUNT,WBC 12.4 x10^3/uL (4.0-10.0)
[2025-02-08 22:48] LABS: APPEARANCE,URINE SLIGHTLY CLOUDY (CLEAR); BILIRUBIN,URINE NEGATIVE (NEGATIVE); COLOR,URINE RED (YELLOW); GLUCOSE,URINE NEGATIVE (NEGATIVE); KETONES,URINE NEGATIVE (NEGATIVE); LEUKOCYTE ESTERASE,URINE TRACE (NEGATIVE); NITRITE,URINE NEGATIVE (NEGATIVE); OCCULT BLOOD,URINE LARGE (NEGATIVE); PH,URINE 6.5 (5.0-8.0); PROTEIN,URINE 100 mg/dL (NEGATIVE); UROBILINOGEN,URINE 0.2 EU/dL (0.2)
[2025-02-08 22:57] LABS: AMORPHOUS SEDIMENT,URINE FEW; BACTERIA,URINE FEW /HPF (NOT SEEN); MUCUS,URINE FEW /LPF (NOT SEEN); RBC,URINE >100 /HPF (NOT SEEN); SQUAMOUS EPITHELIAL CELLS,UR MODERATE /HPF (NOT SEEN)
[2025-02-08 23:00] LABS: A/G RATIO 0.89; ALBUMIN 3.1 g/dL (3.4-5.0); BILIRUBIN TOTAL 0.2 mg/dL (0.2-1.0); CALCIUM 8.4 mg/dL (8.5-10.1); CREATININE 0.7 mg/dL (0.55-1.02); EST CRCL DRUG DOSING (CG) 120.7 mL/min; POTASSIUM,K 3.4 mmol/L (3.5-5.1); PROTEIN TOTAL,TP 6.6 g/dL (6.4-8.2)
[2025-02-08 23:04] LABS: ANION GAP 13.4 mmol/L (5-15)
== END 2025-02-08 23:38 | disposition home or self-care (01) ==
LOC: VM.ED 22:18
DX: O03.4 Incomplete spontaneous abortion without complication (principal); Z88.0 Allergy status to penicillin; Z88.2 Allergy status to sulfonamides; Z88.8 Allergy status to other drugs, medicaments and biological substances; Z79.890 Hormone replacement therapy; Z79.899 Other long term (current) drug therapy; Z90.49 Acquired absence of other specified parts of digestive tract; Z3A.01 Less than 8 weeks gestation of pregnancy
CPT/HCPCS: 36415; 80053; 81001; 84702; 85025; 87086; 99284

== ENCOUNTER 2025-08-03 19:23 | Emergency (ER) | payer SELFPAY ==
[2025-08-03] MEDS: Promethazine 12.5 MG in Sodium Chloride 0.9% 100 ML IV ONE (20:22)
[2025-08-03 21:51] VITALS: BP 155/78; PULSE 85
== END 2025-08-03 20:22 | disposition left against medical advice (07) ==
LOC: VM.ED 19:23
DX: R11.2 Nausea with vomiting, unspecified (principal); Z88.0 Allergy status to penicillin; Z79.890 Hormone replacement therapy; Z79.899 Other long term (current) drug therapy; Z90.49 Acquired absence of other specified parts of digestive tract
CPT/HCPCS: 99283

== ENCOUNTER 2025-09-08 19:26 | Emergency (ER) | payer OTHER ==
[2025-09-08 19:43] VITALS: BP 138/70; PULSE 94
[2025-09-08] MEDS: Take Home: Acetaminophen/HYDROcodone 325-5 MG, 5 Tab Pack PO ONE (19:46)
== END 2025-09-08 19:52 | disposition home or self-care (01) ==
LOC: VM.ED 19:26
DX: K02.9 Dental caries, unspecified (principal); Z79.899 Other long term (current) drug therapy; Z88.0 Allergy status to penicillin; Z88.2 Allergy status to sulfonamides; Z88.8 Allergy status to other drugs, medicaments and biological substances
CPT/HCPCS: 99282; A9270-GY

== ENCOUNTER 2025-10-12 16:49 | Emergency (ER) | payer SELFPAY ==
[2025-10-12 18:50] VITALS: BP 126/70; PULSE 100
== END 2025-10-12 18:50 | disposition home or self-care (01) ==
LOC: VM.ED 16:49
DX: K04.7 Periapical abscess without sinus (principal); Z88.0 Allergy status to penicillin; Z88.2 Allergy status to sulfonamides; Z88.8 Allergy status to other drugs, medicaments and biological substances; Z79.899 Other long term (current) drug therapy; Z90.49 Acquired absence of other specified parts of digestive tract
CPT/HCPCS: 99282; 99283; A9270-GY